=== PATIENT | female | born 1995 | race Caucasian/White ===

== ENCOUNTER → 2017-01-11 | Emergency (ER) | payer OTHER ==
[~2017-01-11] VITALS: Ht 162.6 cm; Wt 100.2 kg
[~2017-01-11] MED LIST: BACITRACIN ZINC OINT 500U/GM, 0.9 GM ONE; DIPH,PERTUSS(ACELL),TET VAC/PF 0.5 ML IM-VACC ONE
[2017-01-11 13:58] VITALS: BP 131/80
== END ==
LOC: ED 13:53
DX: S51.851A Open bite of right forearm, initial encounter (principal); S61.452A Open bite of left hand, initial encounter; F17.200 Nicotine dependence, unspecified, uncomplicated; W55.01XA Bitten by cat, initial encounter; Y93.89 Activity, other specified; Y92.009 Unspecified place in unspecified non-institutional (private) residence as the place of occurrence of the external cause; Y99.9 Unspecified external cause status
CPT/HCPCS: 29125; 29130; 90471; 90715

== ENCOUNTER 2017-03-15 19:18 | Emergency (ER) | payer OTHER ==
[~2017-03-15] VITALS: Ht 162.6 cm; Wt 100.0 kg
[2017-03-15 19:39] VITALS: BP 141/87
[2017-03-15] MEDS ORDERED: DEXAMETHASONE 4 MG TABLET ONE (19:58)
[2017-03-15] MEDS ORDERED: DEXAMETHASONE 4 MG TABLET PO ONE (20:00)
[2017-03-15] MEDS ORDERED: ALBUTEROL SULFATE 2.5 MG/3 ML NPPB ONE (20:00)
[2017-03-15] MEDS ORDERED: ALBUTEROL SULFATE 2.5 MG/3 ML ONE (20:10)
== END 2017-03-15 21:33 | disposition home or self-care (01) ==
LOC: ED 20:32
DX: J45.21 Mild intermittent asthma with (acute) exacerbation (principal); J02.8 Acute pharyngitis due to other specified organisms
CPT/HCPCS: 71020; 87081; 87880; 93005; 94640; 99285; J7613